=== PATIENT | female | born 1995 | race Caucasian/White ===

== ENCOUNTER 2018-02-28 10:40 | Outpatient (CLI) | payer OTHER | END 2018-02-28 10:41 | disposition home or self-care (01) | LOC: BICRAD 10:40 | PROVIDERS: ATTEND Podiatrist | DX: M79.675 Pain in left toe(s) (principal) ==

== ENCOUNTER 2018-05-02 11:57 | Outpatient (CLI) | payer OTHER | END 2018-05-02 11:58 | disposition home or self-care (01) | LOC: BICRAD 11:57 | PROVIDERS: ATTEND Podiatrist | DX: S99.922A Unspecified injury of left foot, initial encounter (principal) ==

== ENCOUNTER 2020-05-27 08:02 | Outpatient (CLI) | payer BC ==
--- NOTE | 2020-05-27 08:30 | RAD ---
Abdomen one view HISTORY: Chronic constipation. Abdomen pain. Sitzmarks study day 1. FINDINGS: Gas and stool over the colon and rectum. Small bowel gas pattern is nonspecific. Lobular calcific density projecting over the left mid abdomen is outside of the renal shadow and like ly represents bowel content. Electronic stimulator device overlies the right side of the pelvis. Linear grouping of small metallic rings over the left upper quadrant consistent with Sitzmarks capsul e, intact, within the stomach. 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 Day 1.
== END 2020-05-27 08:03 | disposition home or self-care (01) ==
LOC: BICRAD 08:02
PROVIDERS: ATTEND Internal Medicine Gastroenterology
DX: K59.09 Other constipation (principal); R10.84 Generalized abdominal pain; R10.13 Epigastric pain; Z80.0 Family history of malignant neoplasm of digestive organs
CPT/HCPCS: 74018